=== PATIENT | female | born 1980 | race Caucasian/White ===

== ENCOUNTER 2022-11-18 13:56 | Emergency (ER) | payer OTHER, MEDICAID, SELFPAY ==
[2022-11-18 15:06] VITALS: BP 147/79; PULSE 75; RESP 18; TEMP 36.4; O2SAT 98; BMI 26.6
--- NOTE | 2022-11-18 15:09 | ED.GENADULT ---
HPI - General Adult General Chief complaint: General Medical Stated complaint: allergic reaction? Time Seen by Provider: 11/18/22 16:34 Source: patient and RN notes reviewed Mode of arrival: ambulatory Limitations: no limitations History of Present Illness HPI narrative: This is a 42-year-old female, with a past medical history of hydradenitis suppurativa, who presents to the emergency department with complaints of pubic rash x1 week. Patient states that several days ago she noticed itching and pain with urination and thought she had a yeast infection. She states that on Saturday she took a 1 day Monistat however this was during the day and believes that the medication did not fully absorb. The next day she did one dose of a 3 day dose of Monistat dose vaginally. The next day she did not have any symptomatic relief therefore she contacted a telemedicine physician where she is prescribed Flagyl. She took both doses as prescribed however her symptoms have only worsened. She denies any fevers, chills, chest pain shortness of breath, abdominal pain, nausea, vomiting or diarrhea. She states that the areas have been painful with drainage, otherwise denies any abnormal vaginal discharge or abnormal vaginal bleeding. Endorses dysuria. Denies urgency or frequency. She is avoiding having bowel movements as this rash has since spread. She is sexually active with 1 partner, she is monogamous and does not have any concerns for sexually transmitted infections. Denies any other complaints or concerns at this time. MD complaint: Pelvic rash Onset (ago): week(s) Location: pelvis, genitals and buttocks Radiation: non-radiation Quality: burning Pain Consistency: constant Relieving factors: none Exacerbating factors: none Associated symptoms: denies other symptoms Treatments prior to arrival: none Related Data Previous Rx's Medication Instructions Recorded acyclovir 400 mg tablet 400 mg PO TID 10 days #30 tabs 11/18/22 ibuprofen 800 mg tablet 800 mg PO Q8H PRN pain #30 tabs 11/18/22 ondansetron 4 mg disintegrating 4 mg PO Q6-8H PRN nausea and 11/18/22 tablet vomiting #14 tabs oxycodone 5 mg tablet 5 mg PO Q6H PRN pain #7 tabs 11/18/22 Allergies Allergy/AdvReac Type Severity Reaction Status Date / Time No Known Allergies Allergy Verified 09/17/23 15:05 [No Known Allergies*] Review of Systems Review of Systems: Yes all other systems are reviewed and are negative Constitutional: Constitutional: Reports as per [facility] Past Medical History Attestation statement: The following information was validated with the patient. Social History Social History Advance Directives: No Advance Directives Information Provided: No Patient : No Physical Exam ED Vital Signs: Vital Signs - 24 hr 11/18/22 15:06 Temperature 97.6 F Pulse Rate 75 Respiratory Rate 18 Blood Pressure 147/79 H Pulse Oximetry 98 Oxygen Delivery Method Room Air BMI result Body Mass Index 26.6 Const General: cooperative, comfortable and no acute distress Orientation/consciousness: patient oriented x3 Limitations: no limitations HENMT Head: Yes normal to inspection, Yes normocephalic and Yes atraumatic Ears: hearing grossly normal bilaterally General nose exam: Normal external nose present Face and sinus: Yes normal facial exam Mouth: Normal oral and palatal mucosa present, oropharynx normal and moist mucous membranes Throat: Yes posterior oropharynx normal Eyes General: appearance normal, both eyes and all related structures Eyelids: Yes eyelids normal Conjunctivae: conjunctivae normal Sclerae: sclerae normal Pupils: Equal, round and reactive pupils present EOM: EOMs intact bilaterally Neck Neck: Yes normal visual inspection, Yes full ROM and Yes no lymphadenopathy Lymphatic: no lymphadenopathy noted Chest Chest palpation & inspection: normal inspection of the chest Resp Effort & Inspection: normal respiratory effort and able to speak in complete sentences Auscultation: clear to auscultation bilaterally, no crackles, no rales, no rhonchi and no wheezes Cardio Rate: regular rate Rhythm: regular rhythm Heart sounds: S1 normal heart sound present and S2 normal heart sound present GI Inspection: Yes normal to inspection Other: examination performed with CAROL Bullock present at all times. External genitalia with numerous maculopapular lesions noted to the bilateral labia majora and minora. Lesions tender to palpation. no erythema, scattered papules extending to the perineal region. General: Yes bladder normal to palpation Speculum Exam - Vagina: normal appearance of the vagina, normal palpation, normal vaginal discharge and vaginal bleeding (scant brown vaginal discharge noted. ) Speculum Exam - Cervix: normal appearance of the cervix Bimanual exam- vagina & uterus: normal bimanual exam, normal palpation, uterine size normal and bladder normal to palpation Bimanual Exam- Adnexa, other: normal adnexae and no masses OB/external & speculum: vaginal bleeding (scant brown vaginal discharge noted. ) Skin General skin exam: no rashes or lesions noted Trauma: no lacerations or abrasions Wounds: no wounds Neuro General: patient oriented x3 and moves all extremities Cranial nerves: Yes Equal, round and reactive pupils present Extrem General: Yes normal to inspection Right upper extremity: normal to inspection Left upper extremity: normal to inspection Right lower extremity: normal to inspection Left lower extremity: normal to inspection Course Course Course Narrative: RME: 42 yold female presents to the ED for painful vaginal lesions describes as burning and tingling. [place] [facility] [place] Decision Making Medical Decision Making [facility] Narrative: 42-year-old female presenting to the emergency department for evaluation of pelvic rash which started 1 week ago. She has tried [id number] Monistat and was prescribed Flagyl through telemedicine physician which has provided her without any relief. Patient mildly hypertensive at 147/79, all other vital signs within normal limits. Differential diagnoses include herpes simplex, vaginitis, bacterial vaginosis, sexually transmitted infection, allergic reaction. examination concerning for herpes outbreak. No cervical motion tenderness. Discussed findings with patient. Will treat with acyclovir. Advised to follow up with OBGYN and we will call her with any positive results. Pt understands and agrees with plan. Stable for d/c. Differential Diagnosis Differential Diagnoses: The differential diagnosis associated with the presentation includes see above Lab Data [facility] Lab Attestation statement: I reviewed the patient's lab results. Urine with trace blood and leukocytes. Will defer treating for UTI until culture returns. Labs: Lab Results 11/18/22 11/18/22 Range/Units 17:18 18:29 Urine Color Yellow Urine Appearance Clear Urine pH 6.0 (5.0-9.0) Ur Specific [place] 1.025 (1.005-1.025) Urine Protein Negative (Neg-Trace) mg/dL Urine Glucose (UA) Negative (Negative) mg/dL Urine Ketones Negative (Negative) mg/dL Urine Blood Trace H (Negative) Urine Nitrite Negative (Negative) Ur Leukocyte Esterase Small (1+) H (Negative) Urine RBC 0-2 (0-2) /HPF Urine WBC 6-10 H (0-5) /HPF Ur Squamous Epith Cells 0-2 (0-2) /HPF Urine Bacteria None Seen (None Seen) Hyaline Casts 0-2 (0-2) /LPF Anila species DNA Negative (Negative) Chlam trachomat DNA PCR NOT DETECTED (Not Detect.) Gardnerella DNA Probe Negative (Negative) N.gonorrhoeae DNA (PCR) NOT DETECTED (Not Detect.) Trichomonas DNA Probe Negative (Negative) Prescription Management I considered prescription management with: Pain Medication and Antiviral Discharge Plan Discharge Clinical Impression: Herpes simplex of female genitalia Patient Disposition: Home, Self-Care Instructions: Genital Herpes Simplex (ED) Additional Instructions: Your examination is concerning for herpes simplex or a allergic reaction to the products that you have used. Please take prescribed antiviral as directed. Finish the entire course. We will call you with any abnormal results. Please avoid intercourse until your symptoms have resolved. If any new or worsening symptoms occur including but not limited to fevers, chills, abdominal pain, worsening pain, please return for re-evaluation. Follow-up with your OBGYN regarding this visit. Prescriptions: New acyclovir 400 mg tablet 400 mg PO TID 10 Days Qty: 30 0RF oxycodone 5 mg tablet 5 mg PO Q6H PRN (Reason: pain) Qty: 7 0RF Rx Instructions: Partial Fill upon patient request. ibuprofen 800 mg tablet 800 mg PO Q8H PRN (Reason: pain) Qty: 30 0RF ondansetron 4 mg tablet,disintegrating 4 mg PO Q6-8H PRN (Reason: nausea and vomiting) Qty: 14 0RF Interventions: ED Discharge Assessment Last Done: 11/18/22 18:57 Discharge Date/Time: 11/18/22 18:58
[2022-11-18 17:29] LABS: Appearance Urine Clear; Color Urine Yellow; Glucose Urine UA Negative (Negative); Leukocyte Esterase Urine Small (1+) (Negative); Nitrite Urine Negative (Negative); Specific Gravity - Urine 1.025 (1.005-1.025); UMIC TRIGGER UACC YES; Urine Blood Trace (Negative); Urine Ketones Negative (Negative); Urine Protein Negative (Neg-Trace)
[2022-11-18 17:34] LABS: Bacteria Urine None Seen (None Seen); Hyaline Casts Urine 0-2 /LPF (0-2); RBC Urine 0-2 /HPF (0-2); Squamous Epithelial Cell Urine 0-2 /HPF (0-2); UACC Culture Trigger YES
--- NOTE | 2022-11-18 18:32 | PC.NURSE ---
PELVIC EXAM COMPLETED BY PROVIDER, T/W CHAPERONING.
[2022-11-19 02:13] LABS: CT PCR NOT DETECTED (Not Detect.); NG PCR NOT DETECTED (Not Detect.)
[2022-11-19 09:44] LABS: BV Int Neg Control Negative (Negative); BV Int Pos Control Positive (Positive)
== END 2022-11-18 18:58 | disposition home or self-care (01) ==
PROVIDERS: Physician Assistant Medical; Emergency Provider Internal Medicine; PCP Nurse Practitioner Family
DX: B00.9 Herpesviral infection, unspecified (principal); A60.04 Herpesviral vulvovaginitis; Z79.899 Other long term (current) drug therapy
CPT/HCPCS: 0353U; 36415; 81001; 87086; 87255; 87480; 87510; 87660; 99283